=== PATIENT | female | born 1960 | race African-American/Black ===

== ENCOUNTER 2018-01-01 20:43 | Emergency (ER) | payer MEDICARE, OTHER ==
[~2018-01-01] VITALS: Ht 157.5 cm; Wt 84.1 kg
[2018-01-02 00:24] VITALS: BP 128/79
== END 2018-01-02 00:36 | disposition home or self-care (01) ==
LOC: EMS 20:45
DX: S09.8XXA Other specified injuries of head, initial encounter (principal); J45.909 Unspecified asthma, uncomplicated; I10 Essential (primary) hypertension; M17.0 Bilateral primary osteoarthritis of knee; M25.552 Pain in left hip; M79.631 Pain in right forearm; Z91.040 Latex allergy status; Z88.8 Allergy status to other drugs, medicaments and biological substances; X58.XXXA Exposure to other specified factors, initial encounter; Y93.89 Activity, other specified; Y92.89 Other specified places as the place of occurrence of the external cause; Y99.8 Other external cause status
CPT/HCPCS: 70450; 72170; 99284

== ENCOUNTER 2019-07-09 12:30 | Emergency (ER) | payer MEDICARE, OTHER ==
[~2019-07-09] VITALS: Ht 160 cm; Wt 90.9 kg
[2019-07-09] MEDS ORDERED: TRAZ150 PO (12:43)
[2019-07-09] MEDS ORDERED: CARV6 PO (12:43)
[2019-07-09] MEDS ORDERED: FLUO-191 PO (12:43)
[2019-07-09] MEDS ORDERED: IBUP-2070 PO (12:43)
[2019-07-09] MEDS ORDERED: TRAZ-257 PO (13:27)
[2019-07-09] MEDS ORDERED: ACETAMINOPHEN 500 MG TABLET PO ONE (13:30)
[2019-07-09 16:22] VITALS: BP 107/62
== END 2019-07-09 16:34 | disposition home or self-care (01) ==
LOC: EMS 12:36
DX: S70.02XA Contusion of left hip, initial encounter (principal); R51 Headache; M54.5 Low back pain; J45.909 Unspecified asthma, uncomplicated; F32.9 Major depressive disorder, single episode, unspecified; I10 Essential (primary) hypertension; Z91.040 Latex allergy status; Z91.011 Allergy to milk products; Z91.013 Allergy to seafood; W06.XXXA Fall from bed, initial encounter; Y93.89 Activity, other specified; Y92.89 Other specified places as the place of occurrence of the external cause; Y99.8 Other external cause status
CPT/HCPCS: 70450; 73503

== ENCOUNTER 2021-02-06 16:57 | Emergency (ER) | payer OTHER ==
[~2021-02-06] VITALS: Ht 157.5 cm; Wt 100.0 kg
[~2021-02-06 16:57] MED LIST: CARV6 PO; FLUO-191 PO; IBUP-2070 PO; TRAZ-257 PO
[2021-02-06 19:29] LABS: BASOPHILS % (AUTO) 0.4 % (0.0-2.0); EOSINOPHILS % (AUTO) 1.4 % (1.0-6.0); HEMATOCRIT 39.2 % (36-46); HEMOGLOBIN 12.8 g/dL (12.0-16.0); LYMPHOCYTES # (AUTO) 1.9 K/uL (1.0-4.8); LYMPHOCYTES % (AUTO) 21.4 % (22.0-44.0); MEAN CORPUSCULAR HEMOGLOBIN 25.9 pg (26.0-34.0); MEAN CORPUSCULAR HGB CONC 32.6 G/dL (31.0-37.0); MEAN CORPUSCULAR VOLUME 79 fL (80-100); MONOCYTES # (AUTO) 0.9 K/uL (0.1-1.0); MONOCYTES % (AUTO) 9.6 % (2.0-9.0); NEUTROPHILS # (AUTO) 5.9 K/uL (1.8-7.7); NEUTROPHILS % (AUTO) 67.2 % (40.0-70.0); PLATELET COUNT (AUTO) 287 K/uL (150-450); RED BLOOD CELL COUNT(AUTO) 4.93 MIL/uL (4.00-5.20); RED CELL DISTRIBUTION WIDTH 16.3 % (11.5-14.5)
[2021-02-06 19:45] LABS: ANION GAP 10 mmol/L (8-16); CALCIUM, TOTAL 8.7 mg/dL (8.8-10.5); CARBON DIOXIDE 28 mmol/L (22-29); CHLORIDE 105 mmol/L (98-107); CREATININE 0.94 mg/dL (0.60-1.30); GLOMERULAR FILTR. RATE CALC > 60 mL/min (>60); GLUCOSE,RANDOM 143 mg/dL (70-110); POTASSIUM 3.5 mmol/L (3.5-5.1); SODIUM SERUM 143 mmol/L (136-145); UREA NITROGEN, BLOOD 19 mg/dL (7-18)
[2021-02-06 20:05] LABS: B-TYPE NATRIURETIC PEPTIDE 50 pg/mL (0-100)
[2021-02-06 20:10] LABS: ALANINE AMINOTRANSFERASE 23 U/L (12-78); ALBUMIN 3.8 g/dL (3.4-5.0); ALKALINE PHOSPHATASE 91 U/L (46-116); ASPARTATE AMINOTRANSFERASE 16 U/L (15-37); BILIRUBIN,TOTAL 0.4 mg/dL (0.1-1.0); CREATINE KINASE, TOTAL ONLY 94 U/L (26-192); HCG,QUANTITATIVE 1 mIU/mL (0-6)
[2021-02-06 21:52] LABS: COVID AG,FIA SOURCE NASOPHARYNGEAL
[2021-02-06 22:00] VITALS: BP 127/68
== END 2021-02-06 22:59 | disposition home or self-care (01) ==
LOC: EMS 17:03
DX: R07.9 Chest pain, unspecified (principal); R06.02 Shortness of breath; R05 Cough; Z20.822 Contact with and (suspected) exposure to COVID-19; J45.909 Unspecified asthma, uncomplicated; F41.9 Anxiety disorder, unspecified; F32.9 Major depressive disorder, single episode, unspecified; I10 Essential (primary) hypertension; Z90.710 Acquired absence of both cervix and uterus; Z79.899 Other long term (current) drug therapy
CPT/HCPCS: 71045; 80053; 82550; 83880; 84484; 84702; 85025; 93005; 99285; 36415-L1; 36415-TC